=== PATIENT | female | born 2000 ===

== ENCOUNTER 2020-11-28 19:51 | Emergency (ER) | payer MEDICAID ==
[2020-11-28 20:18] VITALS: BP 127/73
--- NOTE | 2020-11-28 22:21 | Emergency Department Report ---
ED General Adult HPI - General Chief complaint: Abdominal Pain Stated complaint: CYST,LOWER ABD MOONEY PUI?: No Time Seen by Provider: 11/28/20 22:01 Source: patient Mode of arrival: Ambulatory Limitations: No Limitations - History of Present Illness Initial comments: Patient is a 20-year-old female that presents emergency room with complaints of a red 9 in her suprapubic region. Patient states that she noticed yesterday. Patient states it was painful but is minimally painful now. Patient states the pain is a 2 out of 10. Patient states it only hurts when it is touched. Patient denies fever and chills. Patient denies nausea vomiting. Patient denies abdominal pain. Patient states she feels like this is secondary to s having. Patient states her last menstrual period was a week ago. Patient states she is not sexually active at this time. Patient states there is no chance of . Patient denies recent travel. Patient denies recent international travel. Patient denies exposure to the novel coronavirus. Patient denies sick contacts. Patient denies fever and chills. Patient denies cough. Patient denies diarrhea. Patient denies coming in contact with anybody with symptoms of the novel coronavirus. -: Sudden Severity scale (0 -10): 2 Quality: aching Consistency: constant Improves with: rest Worsens with: other (Palpation) Associated Symptoms: denies other symptoms. denies: confusion, chest pain, cough, diaphoresis, fever/chills, headaches, loss of appetite, malaise, nausea/vomiting, rash, seizure, shortness of breath, syncope, weakness - Related Data Previous Rx's Medication Instructions Recorded Last Taken Type Sulfamethoxazole/Trimethoprim 1 each PO BID 10 Days #20 tablet 11/28/20 Unknown Rx [Bactrim DS TAB] Allergies Allergy/AdvReac Type Severity Reaction Status Date / Time shellfish derived Allergy Swelling Verified 11/28/20 20:11 ED Review of Systems ROS: Stated complaint: CYST,LOWER ABD MOONEY Other details as noted in HPI Constitutional: denies: chills, fever Eyes: denies: eye pain, eye discharge, vision change ENT: denies: ear pain, throat pain Respiratory: denies: cough, shortness of breath, wheezing Cardiovascular: denies: chest pain, palpitations Endocrine: no symptoms reported Gastrointestinal: denies: abdominal pain, nausea, diarrhea Genitourinary: denies: urgency, dysuria, discharge Musculoskeletal: denies: back pain, joint swelling, arthralgia Skin: as per HPI, lesions. denies: rash Neurological: denies: headache, weakness, paresthesias Psychiatric: denies: anxiety, depression Hematological/Lymphatic: denies: easy bleeding, easy bruising ED Past Medical Hx - Past Medical History Previous Medical History?: Yes Hx Asthma: Yes - Surgical History Past Surgical History?: Yes Additional Surgical History: Tonsillectomy - Family History Family history: no significant - Social History Smoking Status: Never Smoker Substance Use Type: Marijuana - Medications Home Medications: Home Medications Medication Instructions Recorded Confirmed Last Taken Type Sulfamethoxazole/Trimethoprim 1 each PO BID 10 Days #20 tablet 11/28/20 Unknown Rx [Bactrim DS TAB] ED Physical Exam - General Limitations: No Limitations General appearance: alert, in no apparent distress - Head Head exam: Present: atraumatic, normocephalic - Eye Eye exam: Present: normal appearance - ENT ENT exam: Present: mucous membranes moist - Neck Neck exam: Present: normal inspection - Respiratory Respiratory exam: Present: normal lung sounds bilaterally. Absent: respiratory distress - Cardiovascular Cardiovascular Exam: Present: regular rate, normal rhythm. Absent: systolic murmur, diastolic murmur, rubs, gallop - GI/Abdominal GI/Abdominal exam: Present: soft, normal bowel sounds. Absent: distended, tenderness, guarding - Extremities Exam Extremities exam: Present: normal inspection - Back Exam Back exam: Present: normal inspection - Neurological Exam Neurological exam: Present: alert, oriented X3 - Psychiatric Psychiatric exam: Present: normal affect, normal mood - Skin Skin exam: Present: warm, dry, intact, normal color, erythema (Right area noted in the suprapubic region at the waistline. Tenderness to palpation. Site is nonfluctuant. No fluidity noted. Findings consistent with cellulitis.), other (Patient examined with charge nurse in the roomCole. ). Absent: rash ED Course Vital Signs 11/28/20 20:08 Temperature 98.8 F Pulse Rate 82 Respiratory 18 Rate Blood Pressure 127/73 O2 Sat by Pulse 100 Oximetry - Reevaluation(s) Reevaluation #1: I discussed all results and clinical findings with patient. I discussed plan of care with patient. Patient agrees with plan of care. Patient is stable for discharge. Patient will be discharged home. Patient given discharge instructions. Patient voiced understanding of discharge instructions. 11/28/20 22:20 ED Medical Decision Making - Medical Decision Making Patient is a 20-year-old female that presents emergency room with complaints of a red area in her suprapubic region at the waistline. On evaluation, the patient was found to have a nonfluctuant stated cellulitic skin infection most likely secondary to shaving. Patient admits to shaving her pubic hair. Patient examined with nurse supervisor asphalt paving in the room. Patient is stable for discharge. Patient will be discharged home with oral antibiotics. Patient not require any further emergency medical procedure or evaluation. Patient stable for discharge. Patient given discharge directions. - Differential Diagnosis Cellulitis, ingrown hair, abscess, skin infection Critical care attestation.: If time is entered above; I have spent that time in minutes in the direct care of this critically ill patient, excluding procedure time. ED Disposition Clinical Impression: Folliculitis Cellulitis Qualifiers: Site of cellulitis: unspecified site Qualified Code(s): L03.90 - Cellulitis, unspecified Disposition: - TO HOME OR SELFCARE Is pt being admited?: No Does the pt Need Aspirin: No Condition: Stable Instructions: Cellulitis, Adult, [id number], Abdominal Pain (ED) Additional Instructions: Patient to follow-up with primary care in 2 to 3 days. Patient to follow-up with [facility] in 2 to 3 days. Patient to rest. Patient to increase water. Warm compress to site 6-7 times a day. Patient to avoid shaving. Patient to take Tylenol or ibuprofen as needed for pain. Patient to take meds as directed. Patient to return to the ER if condition worsens, changes or new symptoms arise. Prescriptions: Sulfamethoxazole/Trimethoprim [Bactrim DS TAB] 1 each PO BID 10 Days #20 tablet Referrals: ROHAN FISHER MD [Primary Care Provider] - 2-3 Days Time of Disposition: 22:21
== END 2020-11-28 22:35 | disposition home or self-care (01) ==
LOC: ED 19:51
DX: N73.2 Unspecified parametritis and pelvic cellulitis (principal); L73.9 Follicular disorder, unspecified; J45.909 Unspecified asthma, uncomplicated; F12.10 Cannabis abuse, uncomplicated; Z90.89 Acquired absence of other organs; Z79.899 Other long term (current) drug therapy; Z91.013 Allergy to seafood
CPT/HCPCS: 99282